=== PATIENT | female | born 1955 | race Caucasian/White ===

== ENCOUNTER 2023-11-14 06:24 | Day surgery (SDC) | payer MEDICARE, OTHER, SELFPAY ==
[2023-11-14] VITALS (9 sets, daily range): BP systolic 104–145; BP diastolic 41–58; BMI 27.7
[2023-11-14] MEDS: NORMOSOL-R 1000 IV (09:09)
[2023-11-14] MEDS: DILAUDID 0.25 MG IV ×2 (12:57→13:08)
[2023-11-14] MEDS: DEMEROL 12.5 MG IV ×2 (13:18→13:35)
--- NOTE | 2023-11-14 13:28 | SUR.PHASEI ---
resting quietly, c/o cramping pain, treated with dilaudid and warm blanket, now demerol for pain and shivers.
== END 2023-11-14 14:37 | disposition home or self-care (01) ==
LOC: SDS 06:24
PROVIDERS: ATTENDING PHYSICIAN Obstetrics & Gynecology
DX: N95.0 Postmenopausal bleeding (principal); N88.2 Stricture and stenosis of cervix uteri
CPT/HCPCS: 58558; 88305; 88341; 88342